=== PATIENT | female | born 1955 | race Caucasian/White ===

== ENCOUNTER 2017-06-26 23:11 | Emergency (ER) | payer SELFPAY ==
[2017-06-26 23:45] VITALS: RESP 20
--- NOTE | 2017-06-27 01:13 | C.PDOC ---
History Of Present Illness 62 year old with Hx of OA presents to the ED c/o joint pain. Patient recently came from [facility], she presents today because she feels like her joints are getting swollen. She states is taking a natural supplement wobenzym for the inflammation, she denies any weakness, numbness, or recent trauma, injury or fall. Time Seen by Provider: 06/27/17 00:05 Chief Complaint (Nursing): Lower Extremity Problem/Injury History Per: Patient History/Exam Limitations: no limitations Onset/Duration Of Symptoms: Days Current Symptoms Are (Timing): Still Present Recent travel outside of the [place]: Yes (Arrived from [facility]) Additional History Per: Patient Past Medical History Reviewed: Historical Data, Nursing Documentation, Vital Signs Vital Signs: Last Vital Signs Temp 97.6 F 06/27/17 01:29 Pulse 76 06/27/17 01:29 Resp 20 06/27/17 01:29 BP 113/76 06/27/17 01:29 Pulse Ox 97 06/27/17 02:46 - Medical History PMH: HTN Surgical History: No Surg Hx Family History: States: Unknown Family Hx - Social History Hx Alcohol Use: No Hx Substance Use: No - Immunization History Hx Influenza Vaccination: No Review Of Systems Constitutional: Negative for: Fever, Chills, Weakness Cardiovascular: Negative for: Chest Pain Respiratory: Negative for: Cough, Shortness of Breath Gastrointestinal: Negative for: Nausea, Vomiting, Abdominal Pain Musculoskeletal: Positive for: Other (Joint pain) Neurological: Negative for: Weakness, Numbness Physical Exam - Physical Exam Appears: Non-toxic, No Acute Distress Skin: Normal Color, Warm, Dry Oral Mucosa: Moist Neck: Normal ROM, Supple Extremity: Normal ROM (Slight pain, no erythema, effusion), Tenderness (on palpation on hands/ wrists , b/l hips and knees), No Swelling Neurological/Psych: Oriented x3, Normal Speech, Normal Cognition Gait: Steady ED Course And Treatment O2 Sat by Pulse Oximetry: 97 (On RA) Pulse Ox Interpretation: Normal Progress Note: Plan: -Motrin 600 mg PO given. - Prednisone 40 mg PO given. Patient is resting comfortably, and is in no acute distress. 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 - Scribe Statement The provider has reviewed the documentation as recorded by the Scribe Jamey Richter All medical record entries made by the Carmelaibmendoza were at my direction and personally dictated by me. I have reviewed the chart and agree that the record accurately reflects my personal performance of the history, physical exam, medical decision making, and the department course for this patient. I have also personally directed, reviewed, and agree with the discharge instructions and disposition.
[2017-06-27 01:30] VITALS: BP 113/76; PULSE 76; TEMP 97.6
[2017-06-27 02:41] VITALS: O2SAT 97
== END 2017-06-27 01:32 | disposition home or self-care (01) ==
LOC: C.ER 23:11
DX: M25.551 Pain in right hip (principal); M19.90 Unspecified osteoarthritis, unspecified site; I10 Essential (primary) hypertension

== ENCOUNTER 2017-08-20 10:48 | Emergency (ER) | payer SELFPAY ==
[2017-08-20] MEDS ORDERED: Oxycodone/Acetaminophen 5/325 mg Tab PO STA (11:56)
--- NOTE | 2017-08-20 11:56 | C.PDOC ---
History Of Present Illness 62 year old female presents to the ED for evaluation after exacerbation of chronic left shoulder pain which began several days ago. Patient was evaluated by clinic and prescribed Prednisone. Patient has been taking two tablets of Advil every 6 hours with limited relief. She is pending her first orthopedic evaluation in September. Patient reports history of similar symptoms years ago and states she was diagnosed with "arthritis." She denies trauma to the area, extremity numbness/weakness. Time Seen by Provider: 08/20/17 11:35 Chief Complaint (Nursing): Upper Extremity Problem/Injury Past Medical History Vital Signs: Last Vital Signs Temp 98.7 F 08/20/17 11:14 Pulse 68 08/20/17 11:14 Resp 16 08/20/17 11:14 BP 112/71 08/20/17 11:14 Pulse Ox 98 08/20/17 12:48 - Medical History PMH: HTN Denies: Chronic Kidney Disease Family History: States: Unknown Family Hx - Social History Hx Alcohol Use: No Hx Substance Use: No - Immunization History Hx Tetanus Toxoid Vaccination: No Hx Influenza Vaccination: Yes Hx Pneumococcal Vaccination: Yes Review Of Systems Musculoskeletal: Positive for: Shoulder Pain (left ) Physical Exam - Physical Exam Appears: Non-toxic, No Acute Distress Skin: Normal Color, Warm, Dry Neck: Supple Chest: Symmetrical, No Deformity, No Tenderness Cardiovascular: Rhythm Regular, No Murmur Respiratory: Normal Breath Sounds, No Rales, No Rhonchi, No Wheezing Extremity: No Normal ROM (limited full abduction and full flexion of left shoulder. limited external rotation of left shoulder ), Capillary Refill (less than 2 seconds ), No Deformity, Other (full internal rotation of left shoulder ) Neurological/Psych: Oriented x3, Normal Speech, Normal Cognition, Other (no focal deficits ) Gait: Steady ED Course And Treatment O2 Sat by Pulse Oximetry: 98 (on RA ) Pulse Ox Interpretation: Normal Progress Note: Motrin PO, Percocet PO, Zofran PO administered. Reevaluation Time: 13:28 Reassessment Condition: Improved Disposition Counseled Patient/Family Regarding: Diagnosis, Need For Followup, Rx Given - Disposition Referrals: YOUR,ORTHOPEDIST [Other] Disposition: HOME/ ROUTINE Disposition Time: 13:28 Condition: IMPROVED Prescriptions: Ibuprofen [Motrin] 600 mg PO Q6 #30 tab oxyCODONE/Acetaminophen [Percocet 5/325 mg Tab] 1 ea PO Q6 PRN #10 tab PRN Reason: Pain, Moderate (4-7) Instructions: Osteoarthritis (ED) Forms: [employer] (Macedonian) Print Language: SYRIAC - Clinical Impression Clinical Impression: Chronic shoulder pain - Scribe Statement The provider has reviewed the documentation as recorded by the Scribe (Kemi Curiel) Provider Attestation: All medical record entries made by the Scribe were at my direction and personally dictated by me. I have reviewed the chart and agree that the record accurately reflects my personal performance of the history, physical exam, medical decision making, and the department course for this patient. I have also personally directed, reviewed, and agree with the discharge instructions and disposition.
[2017-08-20] MEDS ORDERED: Oxycodone/Acetaminophen 5/325 mg Tab ONE (12:38)
[2017-08-20 13:52] VITALS: BP 102/65; PULSE 64; RESP 18; TEMP 98.2; O2SAT 96
== END 2017-08-20 13:52 | disposition home or self-care (01) ==
LOC: C.ER 10:48
DX: G89.29 Other chronic pain (principal); M25.512 Pain in left shoulder